=== PATIENT | female | born 1990 | race Caucasian/White ===

== ENCOUNTER 2018-02-15 01:45 | Inpatient (IN) | payer OTHER ==
[~2018-02-15] VITALS: Ht 157.5 cm; Wt 93.0 kg
--- NOTE | ~2018-02-15 | OR ---
[facility] [address] [place], [place] [address] Draft DATE OF OPERATION: 02/15/2018 SURGEON: Lulu Lang DO PREOPERATIVE DIAGNOSES: 1. IUP at 40 weeks and six days gestation. 2. intolerance of labor. 3. Obesity in . POSTOPERATIVE DIAGNOSES: 1. IUP at 40 weeks and six days gestation. 2. intolerance of labor. 3. Obesity in . 4. Direct OP position. 5. Nuchal cord x1. PROCEDURE PERFORMED: Primary low transverse section. SHOWCASE TRIMMER: Marina Sanchez MD. ANESTHESIA: Epidural. ESTIMATED BLOOD LOSS: 700 mL. COMPLICATIONS: None. FINDINGS: Viable female with Apgars 8 and 9 at 1 and 5 minutes respectively. Weight 5 pounds 15 ounces, born in the persistent OP position. Nuchal x1 was tight, but reduced prior to delivery. Normal cord and placenta were sent to pathology for further evaluation. Normal blood gases. INDICATIONS: Ms. Alvarez is a very pleasant 27-year-old, G1, P0, white female who presented to Labor and Delivery complaining of spontaneous rupture of membranes. Upon presentation, she PATIENT NAME: MAYITO ALVAREZ OPERATIVE REPORT DATE OF : [birth year] REPORT #: [id number] PHYSICIAN: LULU LANG DO PCP: FAYE WILKS MD REPORT IS CONFIDENTIAL AND NOT TO BE RELEASED WITHOUT AUTHORIZATION [facility] [address] [place], [place] [address] Draft was closed and slowly progressed to 4.5 cm. Contractions became painful, and patient requested an epidural, which was kindly placed by Anesthesia. The patient overall, had a very reassuring strip with marked variability and accelerations. However, patient did have occasional subtle late decelerations. The patient made no cervical change after several hours, and decision was made to start Pitocin as her contractions were very spaced, and irregular. When Pitocin was started the patient had a prolonged deceleration that resolved with intrauterine resuscitation. The Pitocin was restarted once category tracing was observed and patient then developed occasional late decelerations. Pitocin was then stopped and labor was expectantly managed. The patient then had another prolonged deceleration, and decision was made to proceed with primary low transverse section. Risks, benefits, alternatives were discussed in detail with the patient. The patient understands and wishes to proceed with the procedure. TECHNIQUE: The patient was taken to the operating room where a time-out was performed to confirm correct patient, correct procedure. Epidural anesthesia was bolused and patient was noted to have adequate anesthesia prior to beginning of surgery. A Duncan catheter had previously been placed and no heparin was indicated. The patient was then prepped and draped in the supine position with a bump in her right hip. The patient has a history of severe reaction to penicillin. Decision was made to prophylax with clindamycin 900 mg IV, gentamicin weight based, and azithromycin 500 mg IV. A Pfannenstiel skin incision was then made, and carried down to the fascia in the midline. The patient had some varicosities of the vessels in the subcutaneous space, and these were made hemostatic with Bovie electrocautery and free ties of 2-0 chromic. Once hemostasis was appreciated, the fascial incision was extended bilaterally using Swanson scissors. The fascia was grasped with Sydnie's, elevated, and underlying rectus muscle was dissected off bluntly, and sharply. The fascial incision was noted to be somewhat low, only approximately 1 cm above the pubic symphysis. The rectus muscles were divided in the midline, and the peritoneum was grasped with hemostats, elevated and entered sharply. Peritoneal incision was extended bilaterally using blunt dissection with careful attention to avoid injury to the bladder. The pelvis was quite tight, and decision was made to proceed with a Maylard incision by carefully dividing a portion of the rectus sheath, her rectus muscles using the Bovie electrocautery. Good hemostasis was appreciated. The lower uterine segment was identified, and Clay self retractor was placed. Hysterotomy was then performed using a surgical scalpel, and clear fluid was noted. The hysterotomy was extended bilaterally using blunt dissection, and the surgeon's hand was placed into the uterine cavity. The head elevated, and delivered with the assistance of fundal pressure. Direct OP position was noted and tight nuchal x1 was easily reduced. The remainder of the baby then delivered with the assistance of fundal pressure, and the baby was vigorous, and cried at delivery. The cord was doubly clamped and cut. Cord gases were obtained. Cord blood was obtained for routine analysis. The placenta was then manually expressed intact with a centrally PATIENT NAME: MAYITO ALVAREZ OPERATIVE REPORT DATE OF : 86 REPORT #: [id number] PHYSICIAN: LULU LANG DO PCP: FAYE WILKS MD REPORT IS CONFIDENTIAL AND NOT TO BE RELEASED WITHOUT AUTHORIZATION [facility] [address] [place] [id number] Draft inserted three-vessel cord, and sent to pathology for further evaluation due to suspected small for gestational age . The uterus was then cleared of any remaining products of conception, and clot, and Pitocin was given per protocol to enhance uterine involution. Hysterotomy was then repaired using 0-Vicryl in a running locked suture. A 2nd layer of 0-Vicryl suture was used to imbricate with good imbrication noted. Some oozing was noted. This was made hemostatic with several sutures, and [id number] of 0-Vicryl. The pelvis was irrigated, and found to be hemostatic. Evicel was then applied to the lower uterine segment and the Clay self retractor was then removed. Tubes and ovaries bilaterally were noted. The lower segment was again identified and noted to be hemostatic and ACell sheet was applied to the lower uterine segment. The peritoneum was then reapproximated using 2-0 Vicryl in a running nonlocked manner. The rectus was reapproximated using 0-Vicryl in simple interrupted sutures after ensuring hemostasis. The remainder of the Evicel was then applied to the rectus sheath and good hemostasis was noted. ACell powder was applied to the rectus sheath, and fascia was reapproximated using 0-Vicryl in a running nonlocked manner. Subcu was then reapproximated using 2-0 Vicryl in a running nonlocked manner, and the skin was reapproximated using surgical niurka. The uterus was then Crede'd for scant amount of blood. The patient was taken to the PACU in good stable condition with her . Sponge, needle, and instrument count was correct x2 at the end of the procedure. Dr. Sanchez was present, participated in all portions of procedure. DO DOMINIK Reese/GABRIELLA /[id number] Copies: ~ PATIENT NAME: MAYITO ALVAREZ OPERATIVE REPORT DATE OF : [birth year] REPORT #: [id number] PHYSICIAN: LULU LANG DO PCP: FAYE WILKS MD REPORT IS CONFIDENTIAL AND NOT TO BE RELEASED WITHOUT AUTHORIZATION
[~2018-02-15 01:45] MED LIST: ALLEGRA ALLERGY60 MG PO; CYCLAFEM1 EACH PO; MULTIVITAMINS1 EAC7 PO; NORTREL1 EAC1; [UNRECOGNIZED DRUG - OTHER] MISC
[2018-02-15] MEDS ORDERED: CLARITIN10 M2 PO (02:26)
[2018-02-15] MEDS ORDERED: LEXAPRO5 MG PO (02:26)
--- NOTE | 2018-02-15 19:23 | NUR ---
02/15/181922 Zunilda Gamez 185 PT ARRIVED TO [facility] ROOM AWAKE AND VSS. PT REPORTS PAIN 7/10 AND NO NAUSEA. RESP EVEN AND UNLABORED. 1918 PAIN MEDICAIOTN GIVEN PER EMAR. BABY ON CHEST AND PT RESTING IN BED NO GRIMACING NOTED. 1922 PT REPORTS A DECREASE IN PAIN 5/10.
== END 2018-02-18 13:10 | disposition home or self-care (01) | DRG 766 ==
LOC: FBCO 01:45 → FBC 02:00
PROVIDERS: ADMIT Obstetrics & Gynecology
PROC: 10D00Z1 Extraction of Products of Conception, Low, Open Approach (ICD-10-PCS; principal; 2018-02-15 17:48)
DX: O42.02 Full-term premature rupture of membranes, onset of labor within 24 hours of rupture (principal); O99.214 Obesity complicating childbirth; O69.81X0 Labor and delivery complicated by cord around neck, without compression, not applicable or unspecified; O76 Abnormality in fetal heart rate and rhythm complicating labor and delivery; Z3A.40 40 weeks gestation of pregnancy; Z37.0 Single live birth; Q99.2 Fragile X chromosome; O87.4 Varicose veins of lower extremity in the puerperium
CPT/HCPCS: 01961; 36415; 80053; 82570; 82803; 84156; 84550; 85025; 85027; C1763; J0456; J1580; J1885; J2175; J2274; J2300; J2370; J2590; J3010; J3105; J3490; J7120

== ENCOUNTER 2020-03-17 08:22 | Emergency (ER) | payer OTHER ==
[~2020-03-17] VITALS: Ht 157.5 cm; Wt 82.5 kg
[~2020-03-17 08:22] MED LIST changes: +CLARITIN10 M2 PO; +LEXAPRO5 MG PO
[2020-03-17] MEDS ORDERED: DOXYCYCLINE HY100 MG PO (10:03)
== END 2020-03-17 10:24 | disposition home or self-care (01) ==
LOC: ED 08:22
DX: L08.89 Other specified local infections of the skin and subcutaneous tissue (principal); Z88.0 Allergy status to penicillin; Z79.899 Other long term (current) drug therapy
CPT/HCPCS: 93971; 99283-25

== ENCOUNTER 2020-12-18 20:41 | Emergency (ER) | payer OTHER ==
[~2020-12-18] VITALS: Ht 157.5 cm; Wt 82.5 kg
[~2020-12-18 20:41] MED LIST changes: +DOXYCYCLINE HY100 MG PO
== END 2020-12-19 00:39 | disposition home or self-care (01) ==
LOC: ED 20:41
DX: U07.1 COVID-19 (principal); Z88.0 Allergy status to penicillin; Z79.899 Other long term (current) drug therapy
CPT/HCPCS: 71045; 80053; 85025; 99283-25; J7030

== ENCOUNTER 2021-06-25 23:41 | Emergency (ER) | payer OTHER ==
[~2021-06-25] VITALS: Ht 157.5 cm; Wt 82.5 kg
== END 2021-06-26 00:40 | disposition home or self-care (01) ==
LOC: ED 23:41
DX: F10.129 Alcohol abuse with intoxication, unspecified (principal); Z88.0 Allergy status to penicillin; Z79.899 Other long term (current) drug therapy
CPT/HCPCS: 99284; J7030

== ENCOUNTER 2022-10-24 09:07 | Inpatient (IN) | payer BC ==
[~2022-10-24] VITALS: Ht 157.5 cm; Wt 96.2 kg
--- NOTE | ~2022-10-24 | OR ---
[facility] [address] [place], [place] [address] Draft DATE OF OPERATION: 11/07/2022 SURGEON: Lulu Lang DO PREOPERATIVE DIAGNOSES: 1. Term . 2. History of prior delivery. 3. Gestational diabetes, diet controlled. 4. Jka antibody positive. POSTOPERATIVE DIAGNOSES: 1. Term . 2. History of prior delivery. 3. Gestational diabetes, diet controlled. 4. Jka antibody positive. PROCEDURE: Performed repeat low transverse delivery. ANESTHESIA: Spinal. SENIOR DIRECTOR MARKETING: Yamilka Treviño DO ESTIMATED BLOOD LOSS: 500 mL. DRAINS: Duncan to gravity. COMPLICATIONS: None. FINDINGS: Delivery of viable male , 7 pounds 9 ounces with Apgars of 8 and 9. Minimal scarring of the rectus. Otherwise normal uterus, tubes, and ovaries. INDICATIONS: Ms. Alvarez is a very pleasant 31-year-old female who presents to Labor and delivery for PATIENT NAME: MAYTIO ALVAREZ OPERATIVE REPORT DATE OF : [birth year] REPORT #: [id number] PHYSICIAN: LULU LANG (SYLVIA) PCP: FAYE WILKS MD REPORT IS CONFIDENTIAL AND NOT TO BE RELEASED WITHOUT AUTHORIZATION [facility] [address] [place], [place] [address] Draft scheduled repeat low transverse delivery. Risks, benefits, and alternatives were discussed in detail with the patient. The patient understands and wished to proceed with the procedure. DESCRIPTION OF PROCEDURE: The patient was taken to the operating room, where a time-out was performed to confirm correct patient, correct procedure. Spinal anesthesia was adequately established. The patient was prepped and draped in the supine position with a bump under the right hip. Duncan catheter was inserted. The patient received clindamycin and gentamicin preoperatively per SCIP protocol secondary to a penicillin allergy. Heparin was not indicated. Once spinal was noted to be adequate, a Pfannenstiel skin incision was made through the prior scar and carried down to the fascia. The fascia was nicked in the midline. Fascial incision was extended bilaterally using curved Swanson scissors. The fascia was grasped, elevated and the underlying rectus muscles dissected bluntly and sharply. Some scarring of the rectus muscle and the fascia was appreciated; however, this was taken down usually without complication. The rectus muscle was divided in the midline and the peritoneum was grasped with clamps, elevated, and entered sharply. Peritoneal incision was extended cephalad and caudad using combination of blunt and sharp dissection. Lower uterine segment was identified and an Clay retractor was placed without difficulty. Hysterotomy was then performed using a surgical scalpel and hysterotomy was extended bilaterally using blunt dissection. Amnion was ruptured for clear fluid. Surgeon's hand was then placed in the uterine cavity. The head elevated in the abdomen delivered with the assistance of fundal pressure. No nuchal cord was identified. The was delivered and was vigorous and cried upon delivery. Cord was doubly clamped and cut, and portion of the blood was retained for routine screening. The was handed to the waiting pediatric team for further care. Placenta was then manually expressed, intact with a centrally inserted three-vessel cord. The uterine cavity was cleared of any remaining products of conception or clot. Hysterotomy was repaired using 0-Monocryl in two layers, the first being a running locked layer and the second being an imbricated layer. The pelvis was irrigated and found to be hemostatic. The peritoneum was then reapproximated using 2-0 Vicryl in a running nonlocked manner. Rectus was loosely plicated in the midline using 0-Vicryl in three interrupted sutures after ensuring the rectus was hemostatic with judicious use of Bovie electrocautery. ACell powder was then applied to the rectus sheath. Fascia was then reapproximated using 0-Vicryl in a running nonlocked manner. Subcu was made hemostatic with the Bovie electrocautery and irrigated. Subcu was reapproximated using 3-0 Vicryl and the skin was reapproximated using surgical niurka. Sponge, needle, and instrument count was correct x2 at the end of the procedure. The patient did receive a postoperative tap block and was then taken to the PACU in stable conditions. PATIENT NAME: MAYITO ALVAREZ OPERATIVE REPORT DATE OF : [birth year] REPORT #: [id number] PHYSICIAN: LULU LANG) PCP: FAYE WILKS MD REPORT IS CONFIDENTIAL AND NOT TO BE RELEASED WITHOUT AUTHORIZATION [facility] [address] [place] [id number] Draft Lulu Lang DO JDW/MODL /[id number] Copies: ~ PATIENT NAME: MAYITO ALVAREZ OPERATIVE REPORT DATE OF : 86 REPORT #: [id number] PHYSICIAN: LULU LANG DO (JD) PCP: FAYE WILKS MD REPORT IS CONFIDENTIAL AND NOT TO BE RELEASED WITHOUT AUTHORIZATION
[2022-11-07 06:20] VITALS: BP 125/76
--- NOTE | 2022-11-07 08:50 | NUR ---
11/07/22 0850 Sheets,Zunilda 0811 PT ARRIVED TO ROOM 104 WITH FBC RN AND AT BEDSIDE. PT DNEIES CONCERNS, NO PAIN OR NAUSEA. PT DENIES SOB AND SPINAL LEVEL T-6. IV INFUSING LR WITH 20 PIT.
[2022-11-07 09:05] VITALS: BP 103/59
--- NOTE | 2022-11-08 06:50 | PR ---
[facility] [address] [place], [place] [address] Signed PP Progress Notes Datetime Report Generated by CPN: 11/08/2022 06:50 SUBJECTIVE: [id number] Pain: Within Normal Limits Nausea/Vomiting: Denies Flatus: Yes Bowel Movement: No Vital Signs: [id number] Vital Signs: Reviewed; Within Normal Limits EXAM: Ongoing Cardiovascular: Normal Respiratory: Normal Abdomen/Uterus: Normal Lochia: Normal Vulva/Perineum: Not Done Breasts: Not Done CVA Tenderness: Normal Extremities: Normal Incision: Normal Progress: Not Applicable Exam Comments: Fundus firm U-2 nontender IMPRESSION/PLAN/PROCEDURES: [id number] Impression: Normal Progression Plan: Continue Present Management Progress Notes: Pt seen and examined. Doing well. Ambulating, voiding, and tolerating full diet. Pain and lochia minimal. Bottlefeeding. No concerns. Very happy with perioperative / care. Signing Physician: Lulu Lang DO Copies: ~ *Electronically Signed* 11/08/22 0650 LULU LANG (SYLVIA) DO PATIENT NAME: MAYITO ALVAREZ RAINA PROGRESS NOTE DATE OF : 86 PHYSICIAN: LULU LANG (SYLVIA) DO RPT #: [id number] REPORT IS CONFIDENTIAL AND NOT TO BE RELEASED WITHOUT AUTHORIZATION
--- NOTE | 2022-11-09 07:47 | PR ---
[facility] [address] [place], [place] [address] Signed PP Progress Notes Datetime Report Generated by CPN: 11/09/2022 07:47 SUBJECTIVE: [id number] Pain: Within Normal Limits Nausea/Vomiting: Denies Flatus: Yes Bowel Movement: No Vital Signs: [id number] Vital Signs: Reviewed; Within Normal Limits EXAM: Ongoing Cardiovascular: Normal Respiratory: Normal Abdomen/Uterus: Normal Lochia: Normal Vulva/Perineum: Not Done Breasts: Not Done CVA Tenderness: Normal Extremities: Normal Incision: Normal Progress: Not Applicable Exam Comments: Fundus firm U-2 nontender. Incision intact and dry with garfield in place. IMPRESSION/PLAN/PROCEDURES: [id number] Impression: Normal Progression Plan: Discharge Progress Notes: Pt seen and examined. Doing well. Ambulating, voiding, and tolerating full diet. Pain and lochia minimal. Bottlefeeding. Doing well on Lexapro. Desires d/c home. Reviewed discharge instructions in detail. Garfield out in clinic tomorrow. Reviewed d/c meds. All questions answered. Signing Physician: Lulu Lang DO Copies: ~ *Electronically Signed* 11/09/22 0747 LULU LANG (SYLVIA) DO PATIENT NAME: MAYITO ALVAREZ PROGRESS NOTE DATE OF : 86 PHYSICIAN: LULU LANG) DO RPT #: [id number] REPORT IS CONFIDENTIAL AND NOT TO BE RELEASED WITHOUT AUTHORIZATION
== END 2022-11-09 13:33 | disposition home or self-care (01) | DRG 788 ==
LOC: FBC 11-07 05:00
PROVIDERS: ADMIT Obstetrics & Gynecology; ATTEND Obstetrics & Gynecology
PROC: 10D00Z1 Extraction of Products of Conception, Low, Open Approach (ICD-10-PCS; principal; 2022-11-07 07:30)
DX: O34.211 Maternal care for low transverse scar from previous cesarean delivery (principal); Z37.0 Single live birth; Z67.10 Type A blood, Rh positive; O99.824 Streptococcus B carrier state complicating childbirth; Z3A.39 39 weeks gestation of pregnancy; O24.420 Gestational diabetes mellitus in childbirth, diet controlled; O99.344 Other mental disorders complicating childbirth; F41.9 Anxiety disorder, unspecified; F32.A Depression, unspecified; Z88.0 Allergy status to penicillin
CPT/HCPCS: 01961; 36415; 85027; 86850; 86870; 86900; 86901; A9270; J0131; J1100; J1580; J1650; J1885; J2405; J2590; J2795; J3490; J7060; J7121